=== PATIENT | male | born 1995 | race Caucasian/White ===

== ENCOUNTER 2023-07-07 06:42 | Outpatient (OUT) | payer OTHER, SELFPAY ==
[2023-07-07 06:55] LABS: Basophils Percent Auto 0.7 % (0.2-2.0); Eosinophils Absolute Auto 0.1 10^3/uL (0.0-0.7); Eosinophils Percent Auto 3.4 % (0.9-7.0); Hematocrit 43.1 % (42.0-54.0); Hemoglobin 14.6 g/dL (14.0-18.0); Immature Granulocytes Abs Auto 0.01 10^3/uL (0.00-0.03); Immature Granulocytes Pct Auto 0.2 % (0.0-0.5); Lymphocytes Absolute Auto 1.3 10^3/uL (1.2-3.8); Lymphocytes Percent Auto 31.1 % (20.5-60.0); Mean Corpuscular HGB Conc 33.9 g/dL (29.9-35.2); Mean Corpuscular Hemoglobin 31.4 pg (25.9-34.0); Mean Corpuscular Volume 92.7 fL (80.0-94.0); Mean Platelet Volume 9.4 fL (9.5-13.5); Monocytes Absolute Auto 0.6 10^3/uL (0.3-0.8); Monocytes Percent Auto 14.4 % (1.7-12.0); Neutrophils Absolute Auto 2.1 10^3/uL (1.4-6.5); Neutrophils Percent Auto 50.2 % (43.0-75.0); Platelet Count 216 10^3/uL (150-450); Red Blood Count 4.65 10^6/uL (4.70-6.10); Red Cell Distribution Width 12.6 % (11.0-15.0); White Blood Count 4.1 10^3/uL (4.0-11.0)
[2023-07-07 08:25] LABS: Anion Gap 9.8; Carbon Dioxide 32.4 mmol/L (21.0-32.0); Chloride 101 mmol/L (98-107); Potassium 4.2 mmol/L (3.5-5.1); Sodium 139 mmol/L (136-145)
[2023-07-07 08:26] LABS: Aspartate Amino Transferase 20 U/L (15-37); BUN Creatinine Ratio 18.5; Calcium 8.7 mg/dL (8.5-10.1); Estimated GFR (African America >60 (>=60); Estimated GFR (Non-African Ame >60 (>=60); Glucose 86 mg/dL (74-106)
[2023-07-07 08:27] LABS: Alanine Aminotransferase 21 U/L (16-63); Albumin Globulin Ratio 1.1; Albumin Level 4.1 g/dL (3.4-5.0); Alkaline Phosphatase 94 U/L (46-116); Cholesterol 174 mg/dL (<=200); Globulin 3.8 g/dL; HDL Cholesterol 71 mg/dL (40-60); Total Protein 7.9 g/dL (6.4-8.2); Triglycerides 32 mg/dL (<=150); VLDL CHOLESTEROL 6.4 mg/dL
[2023-07-07 08:28] LABS: Chol HDL Ratio 2.5; Thyroid Stimulating Hormone 8.836 uIU/mL (0.358-3.740)
== END 2023-07-07 06:43 | disposition home or self-care (01) ==
LOC: LAB 06:42
PROVIDERS: PCP Internal Medicine; Visit Provider Internal Medicine
DX: Z00.00 Encounter for general adult medical examination without abnormal findings (principal); E03.9 Hypothyroidism, unspecified
CPT/HCPCS: 36415; 80053; 80061; 84443; 85025

== ENCOUNTER 2024-08-10 06:36 | Outpatient (OUT) | payer OTHER, SELFPAY ==
--- OUTSIDE RECORDS SUMMARY | 2024-08-10 06:48 | XMS_ITS ---
Author Name Auto Generated Organization OHIP Care Team Providers Care Rn Case Manager Hospice Name Role Phone ERROL ADY Attending Unavailable PROBLEMS No Problem Records Found PROCEDURES No Procedure Records Found RESULTS No Result Records Found ALLERGIES No Allergies Records Found ENCOUNTERS ADMIT/DISCHARGE ACCOUNT NUMBER ADMITTING ENCOUNTER CLASS LOCATION SOURCE 12/27/2023/ [id number] Ambulatory Building:[facility] EPIC PAYERS ENCOUNTER GUARANTOR PAYER SUBSCRIBER SOURCE 12/27/2023 AILYN STROUDOB: [place] [address]Qun: (HP) (WP) Primary Insurance:MEDICAL MUTUALPolicy Number: [id number] e Date:2022-08-07 AILYN STROUDOB: [id number] [place] [address] [facility] EPIC
[2024-08-10 07:03] LABS: Eosinophils Absolute Auto 0.3 10^3/uL (0.0-0.7); Eosinophils Percent Auto 6.9 % (0.9-7.0); Hematocrit 41.4 % (42.0-54.0); Hemoglobin 14.2 g/dL (14.0-18.0); Immature Granulocytes Abs Auto 0.01 10^3/uL (0.00-0.03); Immature Granulocytes Pct Auto 0.2 % (0.0-0.5); Lymphocytes Absolute Auto 1.3 10^3/uL (1.2-3.8); Lymphocytes Percent Auto 32.2 % (20.5-60.0); Mean Corpuscular HGB Conc 34.3 g/dL (29.9-35.2); Mean Corpuscular Hemoglobin 31.4 pg (25.9-34.0); Mean Corpuscular Volume 91.6 fL (80.0-94.0); Mean Platelet Volume 9.5 fL (9.5-13.5); Monocytes Absolute Auto 0.4 10^3/uL (0.3-0.8); Monocytes Percent Auto 10.4 % (1.7-12.0); Neutrophils Percent Auto 49.3 % (43.0-75.0); Platelet Count 234 10^3/uL (150-450); Red Blood Count 4.52 10^6/uL (4.70-6.10); Red Cell Distribution Width 13.1 % (11.0-15.0)
[2024-08-10 08:09] LABS: Anion Gap 11.4; Carbon Dioxide 30.6 mmol/L (21.0-32.0); Chloride 104 mmol/L (98-107); Sodium 142 mmol/L (136-145)
[2024-08-10 08:10] LABS: Alanine Aminotransferase 14 U/L (16-63); Alkaline Phosphatase 101 U/L (46-116); Aspartate Amino Transferase 17 U/L (15-37); Bilirubin Total 0.7 mg/dL (0.2-1.0); Calcium 8.8 mg/dL (8.5-10.1); Estimated GFR (African America >60 (>=60 mL/min/1.73m^2); Estimated GFR (Non-African Ame >60 (>=60 mL/min/1.73m^2); Glucose 88 mg/dL (74-106)
[2024-08-10 08:11] LABS: Albumin Globulin Ratio 1.1; Chol HDL Ratio 2.3; Cholesterol 138 mg/dL (<=200); Globulin 3.6 g/dL; HDL Cholesterol 60 mg/dL (40-60); Thyroid Stimulating Hormone 1.737 uIU/mL (0.358-3.740); Total Protein 7.6 g/dL (6.4-8.2); Triglycerides 36 mg/dL (<=150); VLDL CHOLESTEROL 7.2 mg/dL
== END 2024-08-10 06:37 | disposition home or self-care (01) ==
LOC: LAB 06:37
PROVIDERS: PCP Internal Medicine; Visit Provider Internal Medicine
DX: Z00.00 Encounter for general adult medical examination without abnormal findings (principal)
CPT/HCPCS: 36415; 80053; 80061; 84443; 85025